=== PATIENT | female | born 2005 ===

== ENCOUNTER 2024-08-17 01:04 | Outpatient (CLI) | payer BC, SELFPAY ==
[2024-08-17 10:20] LABS: Abs Immature Grans 0.04 10^3/uL (0.0-0.06); Absolute Basophil Count 0.07 10^3/uL (0.0-0.2); Absolute Eosinophil Count 0.21 10^3/uL (0.0-0.7); Absolute Lymphocyte Count 1.47 10^3/uL (1.2-3.4); Absolute Monocyte Count 0.45 10^3/uL (0.1-0.8); Absolute Neutrophil Count 5.39 10^3/uL (1.2-6.7); Basophils % 0.9 %; Eosinophils % 2.8 %; HCT 42.9 % (36.0-46.0); HGB 14.5 g/dL (11.2-15.7); Immature Grans % 0.5 %; Lymphocytes % 19.3 %; MCHC 33.8 % (32.0-36.0); MCV 92 fL (80-95); MPV 9.4 fL (8.0-11.0); Monocytes % 5.9 %; Neutrophils % 70.6 %; Platelet Count 207 10^3/uL (130-400); RBC 4.67 10^6/uL (3.93-5.22); RDW 12.3 % (11.7-14.6); RDW-SD 41.4 fL; WBC 7.63 10^3/uL (4.4-10.8)
[2024-08-17 11:26] LABS: Vitamin D 25 Total 41.8 ng/mL (30-100)
[2024-08-17 11:32] LABS: ALT 19 U/L (14-59); AST 21 U/L (15-37); Albumin 4.2 g/dL (3.4-5.0); Alkaline Phosphatase 104 U/L (46-116); Anion Gap 8.2 mmol/L (3-11); BUN 9 mg/dL (7-18); Bilirubin, Total 1.04 mg/dL (0.2-1.0); CO2 29.8 mmol/L (21.0-32.0); CREATININE 0.8 mg/dL (0.55-1.02); Chloride 103 mmol/L (98-107); Estimated GFR 108.11 (mL/min/1.73m2); Folate 14.1 ng/mL (8.6-20.0); Glucose 87 mg/dL (74-106); Potassium 3.4 mmol/L (3.5-5.1); Sodium 141 mmol/L (136-145); Total Protein 7.6 g/dL (6.4-8.2); Vitamin B12 494 pg/mL (193-986)
[2024-08-17 11:48] LABS: FREE T4 0.75 ng/dL (0.76-1.46)
[2024-08-17 18:31] LABS: T3,Free 3.6 pg/mL (2.8-5.3)
[2024-08-20 14:09] LABS: Zinc, S 74 mcg/dL (60-106)
[2024-08-23 09:41] LABS: Pyridoxal 5-Phosphate (PLP), P 8 mcg/L (5-50)
[2024-08-24 07:47] LABS: Methylmalonic Acid 0.09 nmol/mL (<=0.40)
== END 2024-08-17 01:05 | disposition home or self-care (01) ==
LOC: LBO 01:04
PROVIDERS: PCP Nurse Practitioner Psychiatric/Mental Health; Visit Provider Nurse Practitioner Psychiatric/Mental Health
DX: Z79.899 Other long term (current) drug therapy (principal); E56.9 Vitamin deficiency, unspecified
CPT/HCPCS: 36415; 80053; 80186; 82306; 84630; 82607; 82746; 84207; 84439; 84481; 85025